=== PATIENT | female | born 1955 | race Two or more races ===

== ENCOUNTER 2025-03-18 08:00 | Day surgery (SDC) | payer OTHER ==
[2025-03-11 11:33] VITALS: BP 140/72
[~2025-03-18] VITALS: Ht 152.4 cm; Wt 66.7 kg
[~2025-03-18 08:00] MED LIST: GLIPIZIDE XL10 MG PO; HUMALOG100 UNIT/2; IRBESARTAN75 MG; OZEMPIC0.25 MG/02; SYNTHROID50 MCG
[2025-03-18] MEDS ORDERED: CEFAZOLIN SODIUM 1,000 MG VIAL ONE (09:45)
[2025-03-18] MEDS ORDERED: EPINEPHRINE HCL/PF 1 MG/ML AMPUL ONE (10:02)
[2025-03-18] MEDS ORDERED: CHLORHEXIDINE GLUCONATE 120 ML BOTTLE TOP ONE (10:45)
[2025-03-18] MEDS ORDERED: GENTAMICIN SULFATE 40 MG/ML VIAL IR ONE (10:45)
[2025-03-18] MEDS ORDERED: MACROBID 100 M100 MG PO (11:31)
[2025-03-18] MEDS ORDERED: TRAM1TAB98 PO (11:31)
== END 2025-03-18 14:20 | disposition home or self-care (01) ==
LOC: CIR.AMB 08:00
PROVIDERS: ATTEND Obstetrics & Gynecology Gynecology
DX: N81.11 Cystocele, midline (principal); N81.5 Vaginal enterocele